=== PATIENT | male | born 1990 ===

== ENCOUNTER 2023-10-04 18:12 | Emergency (ER) | payer SELFPAY ==
[~2023-10-04] VITALS: Ht 160 cm; Wt 81.8 kg
[2023-10-04 18:41] VITALS: BP 123/76; TEMP 98.9
[2023-10-04 19:57] VITALS: PULSE 88
== END 2023-10-04 19:57 | disposition home or self-care (01) ==
LOC: COL.ER 18:12
DX: J10.1 Influenza due to other identified influenza virus with other respiratory manifestations (principal); F17.210 Nicotine dependence, cigarettes, uncomplicated